=== PATIENT | male | born 1945 | race Caucasian/White ===

== ENCOUNTER → 2017-10-04 09:55 | Outpatient (CLI) | payer MEDICARE ==
[2015-12-17 06:59] VITALS: BMI 29.9
[~2017-10-04 09:55] MED LIST: ASPIRIN EC81 M1 PO; CALCIUM 500 + D1 TAB PO; COREG 3.1253.125 MG NG; FISH OIL 1,0001 CA1 PO; FLUTICASONE PRO16 GM; LANOXIN125 MCG PO; LISINOPRIL10 MG PO; MAGNESIUM OXID250 MG PO; MULTIPLE VITAMI1 TA1 PO; NIASPAN500 MG PO; OSTEO BI-FLEX1 EAC1 PO; PRILOSEC20 MG PO; RED YEAST RICE600 MG PO; VITAMIN B COMPL1 TAB PO; ZYLOPRIM300 MG PO
--- NOTE | 2017-10-05 14:14 | EC ---
PATIENT:MISTY WILLS DATE OF SERVICE: 10/04/17 SEX: M MEDICAL RECORD: [id number] DATE OF : 45 LOCATION:D[facility] AGE OF PATIENT: 72 ADMISSION DATE: 10/04/17 REFERRING PHYSICIAN: INTERPRETING PHYSICIAN: MAZIN LOGAN MD ECHOCARDIOGRAM REPORT ECHO CHARGES 4 ECHO COMPLETE CLINICAL DIAGNOSIS: CARDIOMEGALY HISTORY , REASESSESS HX OF HTN ECHOCARDIOGRAPHIC MEASUREMENTS (adult normal given) AC root (d.<3.7cm) 4.7 cm LV Septum d (<1.2 cm> 1.8 cm Valve Excursion 2.5 cm LV Septum (systole) 2.0 cm Left Atria (s.<4.0cm> 3.4 cm LVPW d(<1.2cm) 1.6 cm RV (d.<2.3cm) 3.3 cm LVPW (sytole) 2.1 cm LV diastole(<5.6CM) 5.3 cm MV E-F(>70mm/sec) cm LV systole 4.0 cm LVOT Diameter 2.1 cm MV exc.(>10mm) 1.8 cm Est.ejection fraction (50-75%) % Pericardial Effusion N DOPPLER: LVIT cm/sec A 91.0 cm/sec E 55.0 cm/sec LA cm/sec RVSP 16 mmHg LVOT 105 cm/sec AOP1/2T m/s Asc. Ao 134 cm/sec RVOT 71 cm/sec RA cm/sec PA 107 cm/sec AV Gradient Peak 7.14 mmHg AV Mean 3.60 mmHg AV Area 2.6 cm MV Gradient Peak 4.30 mmHg MV Mean 0.97 mmHg MV Area cm COMMENTS: Interactive Digital Media Specialist: Trino HEBERT Harbor Tug Captain: 2 Dr. Sullivan TAPE# PACS DATE OF SERVICE: 10/04/2017 PROCEDURE: Echocardiogram FINDINGS: 1. Left ventricle chamber size is within normal limits. Left ventricular systolic function is normal. Overall ejection fraction estimated at 55%. 2. Left atrium is within normal limits at 3.4 cm. Right atrium and right ventricular chamber sizes are mildly dilated. 3. Valvular structures have normal structure and motion. ECHOCARDIOGRAM REPORT [id number] MISTY WILLS 4. Doppler interrogation reveals mild mitral regurgitation, mild tricuspid regurgitation, no other valvular insufficiency or stenosis. 5. No evidence of pericardial effusion or left ventricular thrombus. TRANSINT:[id number] Voice Confirmation ID: [id number] DOCUMENT ID: [id number] MAZIN LOGAN MD at 1414 CC: [id number] DICTATION DATE: 10/05/171106 AIR CARRIER INSPECTOR: 10/05/17 1154 DEP CLI 10/04/17 [id number] [place] [address]
== END | disposition home or self-care (01) ==
LOC: D.ECHO 09:55
DX: I51.7 Cardiomegaly (principal)

== ENCOUNTER 2018-01-29 06:23 | Day surgery (SDC) | payer MEDICARE ==
[~2018-01-29] VITALS: Ht 182.9 cm; Wt 108.2 kg
--- NOTE | ~2018-01-29 | OP ---
PATIENT NAME: MISTY WILLS MEDICAL RECORD: [id number] :45 LOCATION:D[facility] ADMISSION DATE: SURGEON: BRENT DE OLIVEIRA MD DATE OF OPERATION: 01/29/2018 PREOPERATIVE DIAGNOSES: 1. Dysphagia. 2. 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 POSTOPERATIVE DIAGNOSES: 1. Dysphagia. 2. 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 3. Schatzki's ring. PROCEDURES: 1. Esophagogastroduodenoscopy with antral and distal esophageal biopsies. 2. Esophageal dilation to 54-Iraqi with a 3-way catheter balloon. The risks, possible complications and alternatives to procedure were explained to the patient. He elects to proceed. ENDOSCOPIC COURSE: The patient was conveyed to the endoscopy suite electively on 01/29/2018. IV sedation was induced by the anesthesia staff. The anesthesia staff was present due to the possible need for airway manipulation in this patient. A bite block was inserted. A gastroscope was inserted into the mouth. It was advanced easily into the hypopharynx. The esophagus was easily intubated as were the stomach and duodenum. Upon withdrawal, retroflexed and angulus views were obtained. Antral biopsies were obtained. I then withdrew into the cardia of the stomach. A 3-way catheter balloon was advanced down the gastroscope. I sequentially dilated the entire length of the esophagus to 54-Iraqi. The gastroscope and balloon dilator were removed. I then re-endoscoped the patient's esophagus and stomach. There had been no evidence of false passage or perforation. Multiple biopsies were obtained at the esophagogastric junction and at the Schatzki's ring. The endoscope was then withdrawn under direct vision. I will see the patient in my office in 2-3 weeks. We will review the results of the biopsies at that time. The patient appears to have had some regression in the Kauffman's esophagus and for that reason, it may be that we will extend his surveillance upper endoscopies out farther than 2 years. TRANSINT:[id number] Voice Confirmation ID: [id number] DOCUMENT ID: [id number] BRENT DE OLIVEIRA MD at 1042 CC: [id number] DICTATION DATE: 01/29/18 1044 RN FLOAT: 01/29/18 1130 [facility] 01/29/18 [place] [id number] [place] [id number]
--- NOTE | ~2018-01-29 | HP ---
PATIENT: MISTY WILLS MEDICAL RECORD: [id number] ACCOUNT: [id number] LOCATION:[facility] : 45 ADMISSION DATE: 01/29/18 HISTORY AND PHYSICAL EXAMINATION CHIEF COMPLAINT: Kauffman's esophagus. HISTORY OF PRESENT ILLNESS: The patient has Kauffman's esophagus. He is here for surveillance upper endoscopy with biopsies. The patient has undergone a PPH in the past. He has had some dysphagia, so I am going to perform an esophageal dilation. The risks, possible complications and alternatives to the procedure were explained to the patient. He elects to proceed. SOCIAL HISTORY: Ex-smoker. ALLERGIES: PRAVASTATIN. HOME MEDICINES: Allopurinol, aspirin, digoxin, lisinopril, magnesium oxide, Niaspan, and Prilosec. PAST MEDICAL AND SURGICAL HISTORY: Sleep apnea, not on CPAP and also cardiomegaly, gastroesophageal reflux which is controlled on Prilosec, history of hiatal hernia, history of cardiac rhythm problems, hypertension, and arthritis. PHYSICAL EXAMINATION: GENERAL: The patient does not appear acutely ill. He does not appear chronically ill. VITAL SIGNS: Reviewed. EARS: External ears appear normal. EYES: Extraocular movements are intact. NECK: Trachea is midline. CHEST: No intercostal retractions. PULMONARY: Nonlabored, no stridor. ABDOMEN: Nontender. IMPRESSION: 1. Dysphagia. 2. Kauffman esophagus. PLAN: Surveillance upper endoscopy with biopsies. Esophageal dilation. TRANSINT:[id number] Voice Confirmation ID: [id number] DOCUMENT ID: [id number] BRENT DE OLIVEIRA MD at 1042 CC: [id number] DICTATION DATE: 01/29/18 1018 RADIATION ONCOLOGY NURSE: 01/29/18 1033 [facility] 01/29/18 [place] [address]
[2018-01-29 07:05] LABS: BASOPHILS 0.6 % (0-2); EOSINOPHILS 8.4 % (0-7); HEMATOCRIT 46.5 % (42.0-54.0); HEMOGLOBIN 16.1 g/dL (13.5-17.5); IMMATURE GRANULOCYTES 0.6 % (0-5); LYMPHOCYTES 35.8 % (15-50); MCH 32.9 pg (26.0-34.0); MCHC 34.6 g/dL (31.0-37.0); MCV 94.9 fL (80.0-100.0); MEAN PLATELET VOLUME 10.1 fL (7.4-10.4); MONOCYTES 7.1 % (2-11); NEUTROPHILS 47.5 % (40-80); PLATELET COUNT 303 10x3/uL (130-400); RDW 12.2 % (11.5-14.5); WBC 12.5 10x3/uL (4.8-10.8)
[2018-01-29 07:16] VITALS: BP 139/87; Ht 182.9 cm; Wt 108.2 kg
[2018-01-29 07:17] LABS: INR 0.96 (0.85-1.17); PROTIME 12.4 SECONDS (11.6-15.0)
[2018-01-29 07:20] LABS: CALCIUM 9.3 mg/dL (8.5-10.1); CARBON DIOXIDE 27.2 mmol/L (21.0-32.0); CREATININE - SERUM 1.2 mg/dL (0.6-1.3); POTASSIUM - SERUM 4.2 mmol/L (3.5-5.1)
== END 2018-01-29 11:43 | disposition home or self-care (01) ==
LOC: D.OPS 06:23
PROVIDERS: Anesthesiology
DX: R13.10 Dysphagia, unspecified (principal); K22.70 Barrett's esophagus without dysplasia; K22.2 Esophageal obstruction; Z01.812 Encounter for preprocedural laboratory examination; K21.9 Gastro-esophageal reflux disease without esophagitis; G47.30 Sleep apnea, unspecified

== ENCOUNTER → 2018-10-22 12:18 | Outpatient (CLI) | payer MEDICARE ==
[2018-01-29 07:16] VITALS: BMI 32.3
== END | disposition home or self-care (01) ==
LOC: D.ECHO 12:18
DX: R42 Dizziness and giddiness (principal); I10 Essential (primary) hypertension